=== PATIENT | male | born 1960 | race Caucasian/White ===

== ENCOUNTER 2016-08-30 08:29 | Emergency (ER) | payer SELFPAY ==
[2016-08-30 08:56] VITALS: RESP 18; TEMP 99; O2SAT 98; BMI 34.7
[2016-08-30] MEDS ORDERED: guaiFENesin DM 200 mg-20 mg/10 ml UD PO STA (09:18)
--- NOTE | 2016-08-30 09:32 | ED PDOC ---
Arrival/HPI - General Chief Complaint: Cough, Cold, Congestion Time Seen by Provider: 08/30/16 09:14 Historian: Patient - History of Present Illness Narrative History of Present Illness (Text): 08/30/16 09:31 55 year old male whose past medical history includes diabetes presents to the emergency department with cough since last week. Patient states the cough is productive with greenish phlegm. Patient also reports runny nose, sore throat, and subjective fevers. Denies sinus pressure or shortness of breath. PMD: Non-CPH ([place]) Time/Duration: < week Symptom Onset: Gradual Symptom Course: Unchanged Modifying Factors (Text): None Past Medical History - Provider Review Nursing Documentation Reviewed: Yes - Cardiac Hx Hypertension: Yes - Endocrine/Metabolic Hx Endocrine Disorders: Yes Hx Diabetes Mellitus Type 2: Yes - Psychiatric Hx Substance Use: No Family/Social History - Physician Review Nursing Documentation Reviewed: Yes Family/Social History: Unknown Family HX Smoking Status: Never Smoked Hx Alcohol Use: No Hx Substance Use: No Allergies/Home Meds Allergies/Adverse Reactions: Allergies No Known Allergies Allergy (Verified 08/30/16 08:53) Home Medications: Home Meds Medication Instructions Recorded Confirmed Metformin HCl [Metformin HCl ER] 1,000 mg PO BID 08/30/16 08/30/16 Metoprolol Tartrate [Lopressor] 25 mg PO BID 08/30/16 08/30/16 amLODIPine [Norvasc] 10 mg PO DAILY 08/30/16 08/30/16 Review of Systems - Physician Review All systems were reviewed & negative as marked: Yes - Review of Systems Constitutional: absent: Fevers ENT: Sore Throat, Rhinorrhea Respiratory: Cough, Sputum. absent: SOB Physical Exam Vital Signs Reviewed: Yes Vital Signs Temp Pulse Resp BP Pulse Ox 08/30/16 10:42 81 18 154/96 H 98 08/30/16 08:49 99 F 72 18 135/76 98 Temperature: Afebrile Blood Pressure: Normal Pulse: Regular Respiratory Rate: Normal Appearance: Positive for: Well-Appearing, Non-Toxic, Comfortable Pain Distress: None Mental Status: Positive for: Alert and Oriented X 3 - Systems Exam Head: Present: Atraumatic, Normocephalic Pupils: Present: PERRL Extroacular Muscles: Present: EOMI Conjunctiva: Present: Normal Mouth: Present: Moist Mucous Membranes Nose (Internal): Present: Other (Nasal congestion) Neck: Present: Normal Range of Motion Respiratory/Chest: Present: Clear to Auscultation, Good Air Exchange. No: Respiratory Distress, Accessory Muscle Use, Wheezes Cardiovascular: Present: Regular Rate and Rhythm, Normal S1, S2. No: Murmurs Abdomen: Present: Normal Bowel Sounds. No: Tenderness, Distention, Peritoneal Signs Back: Present: Normal Inspection Upper Extremity: Present: Normal Inspection. No: Cyanosis, Edema Lower Extremity: Present: Normal Inspection. No: Edema Neurological: Present: GCS=15, CN II-XII Intact, Speech Normal Skin: Present: Warm, Dry, Normal Color. No: Rashes Psychiatric: Present: Alert, Oriented x 3, Normal Insight, Normal Concentration Medical Decision Making ED Course and Treatment: Impression: 55 year old male whose past medical history includes diabetes presents to the emergency department with cough since last week. Differential Diagnosis included but are not limited to: Cough r/o pneumonia vs bronchitis Plan: -- Chest X-ray -- Robitussin, Motrin -- Reassess and disposition Progress Notes: Chest X-ray Rubber Molder: Dr. Rendon, Rosanna MELARA IMPRESSION: No active pulmonary disease Patient feels better. CXR negative. He will follow up with his primary care doctor in 1-2days. - RAD Interpretation Radiology Orders: 08/30/16 09:18 CHEST TWO VIEWS (PA/LAT) [RAD] Stat - Medication Orders Current Medication Orders: Discontinued Medications Guaifenesin/Dextromethorphan (Robitussin Dm) 10 ml PO STAT STA Stop: 08/30/16 09:19 Last Admin: 08/30/16 09:46 Dose: 10 ml Ibuprofen (Motrin Tab) 600 mg PO STAT STA Stop: 08/30/16 09:19 Last Admin: 08/30/16 09:47 Dose: 600 mg - Scribe Statement The provider has reviewed the documentation as recorded by the [facility] [place] Provider Scribe Attestation: All medical record entries made by the Scribe were at my direction and personally dictated by me. I have reviewed the chart and agree that the record accurately reflects my personal performance of the history, physical exam, medical decision making, and the department course for this patient. I have also personally directed, reviewed, and agree with the discharge instructions and disposition. Disposition/Present on Arrival - Present on Arrival Any Indicators Present on Arrival: No History of DVT/PE: No History of Uncontrolled Diabetes: No Urinary Catheter: No History of Decub. Ulcer: No History Surgical Site Infection Following: None - Disposition Have Diagnosis and Disposition been Completed?: Yes Diagnosis: Bronchitis Disposition: HOME/ ROUTINE Disposition Time: 10:45 Patient Plan: Discharge Condition: IMPROVED Discharge Instructions (ExitCare): Acute Bronchitis (ED) Additional Instructions: Mr Obrien, thank you for letting us take care of you today. Your provider was Dr. Castillo. You were treated for Bronchitis. The emergency medical care you received today was directed at your acute symptoms. If you were prescribed any medication, please fill it and take as directed. It may take several days for your symptoms to resolve. Return to the Emergency Department if your symptoms worsen, do not improve, or if you have any other problems. Please contact your doctor or call one of the physicians/clinics you have been referred to that are listed on the Patient Visit Information form that is included in your discharge packet. Bring any paperwork you were given at discharge with you along with any medications you are taking to your follow up visit. Our treatment cannot replace ongoing medical care by a primary care provider (PCP) outside of the emergency department. Thank you for allowing the [facility] team to be part of your care today. If you had an X-Ray or CT scan: A Radiologist will review the ED reading if any change in treatment is needed we will contact you. If you had a blood, urine, or wound culture: It will take several days for the results, if any change in treatment is needed we will contact you. If you had an STI test: It will take 48 hours for the results. Please call after 1 week if you have not heard back. Prescriptions: Benzonatate [Tessalon Perles] 100 mg PO TID #30 sgl guaiFENesin [guaifENESIN] 200 mg PO Q8 #1 bottle Ibuprofen [Motrin] 600 mg PO Q6 PRN #30 tab PRN Reason: Pain, Moderate (4-7) Referrals: [facility], [Non-Staff] - Follow up with primary Forms: [employer] (Bermudian), WORK NOTE
--- NOTE | 2016-08-30 10:13 | RAD ---
HISTORY: cough r/o pna COMPARISON: No prior. TECHNIQUE: Chest PA and lateral FINDINGS: LUNGS: The lungs are well inflated and clear. PLEURA: No significant pleural effusion identified. No pneumothorax apparent. CARDIOVASCULAR: Normal. OSSEOUS STRUCTURES: No significant abnormalities. VISUALIZED UPPER ABDOMEN: Normal. OTHER FINDINGS: None. IMPRESSION: No active pulmonary disease.
[2016-08-30 10:42] VITALS: BP 154/96; PULSE 81
== END 2016-08-30 10:48 | disposition home or self-care (01) ==
LOC: ED 08:29
DX: J40 Bronchitis, not specified as acute or chronic (principal); E11.9 Type 2 diabetes mellitus without complications